=== PATIENT | female | born 1985 | race Caucasian/White ===

== ENCOUNTER 2017-03-11 19:53 | Emergency (ER) | payer BC, OTHER ==
[~2017-03-11 19:53] MED LIST: Sodium Chloride 0.9% 1,000 ML BAG ONE; Sodium Chloride 0.9% 100 ML BAG ONE
[2017-03-11] MEDS ORDERED: Fentanyl 100 MCG/2 ML VIAL ONE (20:14)
[2017-03-11 20:24] LABS: Bilirubin Negative (Negative); Blood, Urine Large (Negative); Clarity Cloudy (Clear); Glucose, Urine (Dipstick) Negative (Negative); Leukocyte Negative (Negative); Nitrite Negative (Negative); Protein, Urine (Dipstick) Negative (Neg-Trace); Urobilinogen 0.2 mg/dL (0.2-1.0)
[2017-03-11 20:26] LABS: Bacteria/HPF Rare-Few HPF (None Seen); RBC/HPF 0-3 HPF (0-3); WBC/HPF 0-3 HPF (0-3)
[2017-03-11 20:42] LABS: #Basophils 0.1 thou/uL (0.0-0.2); #Eosinphils 0.2 thou/uL (0.0-0.7); #Lymphocytes 2.9 thou/uL (1.20-3.40); #Monocytes 0.7 thou/uL (0.11-0.59); #Neutrophils 6.8 thou/uL (1.40-6.50); %Basophils 0.6 % (0.0-1.0); %Eosinophils 1.6 % (0.0-10.0); %Lymphocytes 26.9 % (21.0-51.0); %Monocytes 6.5 % (0.0-10.0); %Neutrophils 64.4 % (42.0-75.0); Hemoglobin 10.5 g/dL (12.0-16.0); MDiff Complete? YES; Mean Corpuscular Hemoglobin 24.3 pg (27.0-31.0); Mean Corpuscular Volume 75.9 fl (81.0-99.0); Mean Platelet Volume 6.7 fL (7.4-10.4); Platelet Count 384 thou/uL (130-400); Polychromasia SLIGHT = 2-3 cells (100X) (0-2/hpf); RBC Distribution Width 15.1 % (11.5-14.5); Red Blood Cell (RBC) Count 4.34 mill/uL (4.20-5.40); White Blood Cell (WBC) Count 10.6 thou/uL (4.8-10.8)
[2017-03-11 20:50] LABS: ALT (SGPT) 22 U/L (8-55); AST (SGOT) 13 U/L (5-34); Albumin 4.4 g/dL (3.5-5.0); Alkaline Phosphatase 61 U/L (40-150); Anion Gap 13 mmol/L (10-20); BUN (Urea Nitrogen) 16 mg/dL (7.0-18.7); Bilirubin, Total Less than 0.3 mg/dL (0.2-1.2); Calc. Creatinine Clearance 0 mL/min (70-130); Calcium 9.4 mg/dL (7.8-10.44); Carbon Dioxide 26 mmol/L (22-29); Chloride 103 mmol/L (98-107); Estimated GFR-MDRD 82; Globulin 3.1 g/dL (2.4-3.5); Glucose 88 mg/dL (70-105); Potassium 3.7 mmol/L (3.5-5.1); Protein, Total 7.5 g/dL (6.0-8.3); Sodium 138 mmol/L (136-145)
[2017-03-11] MEDS ORDERED: cefTRIAXone\\ROCEPHIN 1 GM VIAL ONE (21:15)
--- NOTE | 2017-03-11 22:17 | CT ---
CT ABDOMEN AND PELVIS WITHOUT IV CONTRAST: Date: 03-11-17 History: Right flank pain for six days with hematuria. FINDINGS: There is minimal linear scarring versus atelectasis at the right lung base. The lung base are otherw ise clear. No renal or ureteral calculi are seen bilaterally and there is no evidence of hydronephrosis. There is a bilobed cystic structure seen just anterior and superior to the urinary bladder as well a s anterior to the fundus of the uterus. Craniocaudal dimension are adequately measure. The greatest AP dimension is 3.3 cm with greatest transverse dimension of 3 cm. This does demonstrate fluid atten uation on this examination. While this could potentially represent a urinary bladder diverticulum, t his is felt to be separate from the urinary bladder. The exact etiology for this structure is uncert ain. This could be related to a cyst. The liver, spleen, pancreas and bilateral adrenal glands appear to have a grossly normal nonenhanced CT appearance. There is 1.4 cm low density lesion seen within the region of the cervix, probably related to a nabot hian cyst. The appendix is visualized and normal in caliber. IMPRESSION: 1. Bilobed cystic structure just anterior and superior to the urinary bladder and uterus. Exact etio logy for this cystic structure is uncertain. This does demonstrate fluid attenuation. This could be related to a urinary bladder diverticulum. This may represent a benign cyst within the pelvis. Follo w up evaluation of the pelvis is recommended with IV contrast for further evaluation including delay ed images through the urinary bladder. This can be performed on a nonemergent basis. 2. No renal or ureteral calculi are seen bilaterally, and there is no hydronephrosis. POS: JOSE RAMON
== END 2017-03-11 22:15 | disposition home or self-care (01) ==
LOC: MADERS 19:53
DX: M54.5 Low back pain (principal); R30.0 Dysuria; Z79.899 Other long term (current) drug therapy
CPT/HCPCS: 74176; 80053; 81003; 81015; 85025; 87086; 96361; 96365; 96375; J0696; J3010; J7050

== ENCOUNTER 2017-03-16 21:56 | Emergency (ER) | payer OTHER ==
[2017-03-16] MEDS ORDERED: diphenhydrAMINE HCl 25 MG CAP ONE (22:54)
== END 2017-03-16 23:14 | disposition home or self-care (01) ==
LOC: MADERS 21:56
DX: L50.9 Urticaria, unspecified (principal)
CPT/HCPCS: 96372; J1040